=== PATIENT | female | born 1990 | race Hispanic/Latino ===

== ENCOUNTER 2016-11-17 18:19 | Emergency (ER) | payer OTHER ==
[~2016-11-17] VITALS: Ht 152.4 cm; Wt 62.6 kg
[2016-11-17] MEDS ORDERED: TYLE325T5 PO (18:33)
[2016-11-17] MEDS ORDERED: prenatal vitamin PO (18:33)
[2016-11-17 19:47] LABS: ABG BASE EXCESS -0.8 (-2.0-2.0); ABG HCO3 22.6 MEQ/L (22.0-26.0); ABG PARTIAL PRESSURE CO2 33.4 mmHg (35.0-45.0); ABG PARTIAL PRESSURE O2 103.7 mmHg (75.0-100.0); ABG STANDARD HCO3 23.8 MEQ/L (22.0-26.0); ABG TOTAL CO2 23.7 MEQ/L (22.0-29.0); ABG pH (ARTERIAL) 7.449 UNITS (7.350-7.450)
[2016-11-17 19:52] LABS: BASO % 0.1 % (0.0-1.0); EOS # 0.5 K/mm3 (0.0-0.50); EOS % 5.2 % (0.0-3.0); LARGE UNSTAINED CELL # 0.1 K/mm3 (0.0-0.4); LARGE UNSTAINED CELL % 1.3 % (0.0-4.0); LYMPH # 1.8 K/mm3 (1.5-6.5); LYMPH % 19.6 % (24.0-44.0); MEAN CORPUSCULAR HEMOGLOBIN 32.1 pg (27.0-33.0); MEAN CORPUSCULAR HGB CONC 34.6 g/dl (32.0-36.5); MEAN CORPUSCULAR VOLUME 92.9 fl (80.0-96.0); MONO # 0.5 K/mm3 (0.0-0.8); NEUTROPHILS # 6.4 K/mm3 (1.8-7.7); NEUTROPHILS % 68.7 % (36.0-66.0); PLATELET COUNT, AUTOMATED 238 k/mm3 (150-450); RED CELL DISTRIBUTION WIDTH 12.3 % (11.5-14.5); WHITE BLOOD COUNT 9.3 K/mm3 (4.0-10.0)
[2016-11-17 20:03] LABS: ALBUMIN 3.1 GM/DL (3.2-5.2); ALKALINE PHOSPHATASE 62 U/L (45-117); ALT/SGPT 16 U/L (12-78); ANION GAP 9 MEQ/L (8-16); AST/SGOT 12 U/L (15-37); BILIRUBIN,DIRECT 0.1 MG/DL (0.0-0.2); BILIRUBIN,TOTAL 0.4 MG/DL (0.2-1.0); BLOOD UREA NITROGEN 9 MG/DL (7-18); CALCIUM LEVEL 8.2 MG/DL (8.5-10.1); CARBON DIOXIDE LEVEL 26 MEQ/L (21-32); CHLORIDE LEVEL 103 MEQ/L (98-107); CREATININE FOR GFR 0.69 MG/DL (0.55-1.02); GLOMERULAR FILTRATION RATE > 60.0 (>60); GLUCOSE, FASTING 91 MG/DL (70-105); POTASSIUM SERUM 3.3 MEQ/L (3.5-5.1); SODIUM LEVEL 138 MEQ/L (136-145); TOTAL PROTEIN 6.2 GM/DL (6.4-8.2)
[2016-11-17 20:18] VITALS: BP 101/61
== END 2016-11-17 20:25 | disposition home or self-care (01) ==
LOC: EDBD 18:19 → M ED 19:32
DX: R06.02 Shortness of breath (principal); Z3A.10 10 weeks gestation of pregnancy

== ENCOUNTER 2017-04-13 16:11 | Outpatient (CLI) | payer OTHER ==
[~2017-04-13] VITALS: Ht 152.4 cm; Wt 70.7 kg
[~2017-04-13 16:11] MED LIST: TYLE325T5 PO; prenatal vitamin PO
[2017-04-13] MEDS ORDERED: FERR325T3 PO (16:30)
[2017-04-13 16:36] VITALS: BP 112/58
== END 2017-04-13 17:30 | disposition home or self-care (01) ==
LOC: M LDO 16:11
PROVIDERS: ATTEND Student in an Organized Health Care Education/Training Program
DX: O36.8130 Decreased fetal movements, third trimester, not applicable or unspecified (principal); Z3A.31 31 weeks gestation of pregnancy; N89.8 Other specified noninflammatory disorders of vagina; O26.893 Other specified pregnancy related conditions, third trimester

== ENCOUNTER 2017-06-03 10:25 | Inpatient (IN) | payer OTHER ==
[2017-06-03] VITALS (40 sets, daily range): BP systolic 93–127; BP diastolic 54–74
[~2017-06-03] VITALS: Ht 152.4 cm; Wt 73.2 kg
[~2017-06-03 10:25] MED LIST changes: +FERR325T3 PO
[2017-06-03] MEDS ORDERED: PENICILLIN G POTASSIUM IV 5 MU in D5W MINI-BAG PLUS 100 ML IV STA (10:53)
[2017-06-03] MEDS ORDERED: LACTATED RINGER'S 1000 ML IV ONE (11:00)
[2017-06-03] MEDS: LR 1,000 ML IV SCH ×2 (11:52→20:11)
[2017-06-03 12:30] LABS: MEAN CORPUSCULAR HEMOGLOBIN 29.5 pg (27.0-33.0); MEAN CORPUSCULAR HGB CONC 32.7 g/dl (32.0-36.5); PLATELET COUNT, AUTOMATED 218 10^3/uL (150-450); RED CELL DISTRIBUTION WIDTH 13.2 % (11.5-14.5); WHITE BLOOD COUNT 8.2 10^3/uL (4.0-10.0)
[2017-06-03] MEDS ORDERED: OXYTOCIN DRIP 30 UNITS in APPROPRIATE DILUENT 1 EA IV SCH (14:30)
[2017-06-03] MEDS: PENICILLIN G POTASSIUM IV 2.5 MU in APPROPRIATE DILUENT 1 EA IV SCH ×2 (15:13→19:32)
--- NOTE | 2017-06-03 15:45 | HPE ---
DATE OF ADMISSION: 06/03/2017 This lady comes in 5, para 4 angy every 4-5 minutes moderate intensity and on admission she says that she feels like pushing. She is in quite a bit of distress. On examination she is 2 cm, posterior, high, no loss of fluid or vaginal bleeding. Her estimated date of confinement (EDC) is 06/09/2017. She is at 40 and 3. Her past history is in September 2014 at 38 weeks vaginal delivery female 7 pounds, induction of labor, oligohydramnios with epidural, May 2013, 37 and three, vaginal delivery female 6 pounds 15 ounces, precipitous delivery, April 2011 at 37 weeks, vaginal delivery 7 pounds 3 ounces female. Her risk factors are anemia and group B Streptococcus positive (GBS). In 2008, she had a spontaneous miscarriage with dilatation and curettage (D and C). She was treated as if she had a delivery, although she delivered the earliest at 37 and the latest at 38 weeks of gestation. Labs are O+, HIV negative, hepatitis negative, RPR negative, rubella immune. Varicella immune. Pap normal. Urine negative. Gonorrhea and chlamydia negative. 1-hour glucose was 89. GBS was positive. Blood pressure 117/62, respirations 16, pulse 76, temperature 98.6. Urine is 1.010, pH 5, negative, negative, negative. Our plan of management today is to hydrate her to IV antibiotics because of her GBS status, reevaluate her contractions and her cervical change in 2 hours time. The rest of the examination is unremarkable. She is normocephalic, atraumatic. Neck full range of motion. Pupils equal and reactive to light. Distal pulses are symmetric. No evidence of DVT, PE or superficial phlebitis. Chest is clear bilaterally to bases. No evidence of wheezes or rhonchi. No CVA tenderness. Four quadrant bowel sounds are noted. Uterus is relaxed in between her contractions. No rashes, lesions or pruritus. She has marked a 2 off her right arm. No arthralgia, myalgia. No complaints of cough, wheezes, shortness of breath or dyspnea on exertion. No chest pain, not bleeding, not bruising. Neurologically complete. No history of incontinence, urgency or frequency. No nausea, vomiting, diarrhea or constipation. No diabetic issues. She has no [employer] issues. Past history surgical and medical unremarkable. Family history is noncontributory. She does not smoke, drink, or abuse drugs. She is to a soldier. No domestic violence and good support. In summary we have a 40 and 3 acting like she is fully dilated but is having contractions. Reevaluate her and treat her prophylactically for her GBS status if she continues on angy. FLORENTINO
[2017-06-03] MEDS ORDERED: FENTANYL 2MCG/ML ROPIVACAINE 0.2% IN 0.9% NACL 200ML IVBAG As Ordered ONE (19:24)
[2017-06-03] MEDS ORDERED: ONDANSETRON 4MG/2ML VIAL (J2405) IV PRN (20:30)
[2017-06-03] MEDS ORDERED: diphenhydrAMINE INJ 50MG/ML VIAL (J1200) IV PRN (20:30)
[2017-06-03] MEDS ORDERED: NALOXONE INJ 0.4 MG/1 ML VIAL (J2310) IV PRN (20:30)
[2017-06-03] MEDS ORDERED: EPIDURAL/PCA KEYS XX PRN (20:30)
[2017-06-03] MEDS ORDERED: ePHEDrine SULFATE 25 MG/5 ML(5MG/ML) SYRINGE IV PRN (20:30)
[2017-06-03] MEDS ORDERED: LACTATED RINGER'S 1000 ML IV PRN (20:30)
[2017-06-03] MEDS ORDERED: REFRIGERATOR IV KEYS XX PRN (20:30)
[2017-06-03] MEDS ORDERED: FENTANYL/ROPIVACAINE/NACL BAG 200 ML EPIDURAL SCH (20:30)
[2017-06-03] MEDS ORDERED: EPIDURAL COMMENT XX SCH (20:30)
[2017-06-03 22:51] LABS: CORD GAS ABE A -1.3; CORD GAS ABE V -0.4; CORD GAS HCO3 A 23.7 MEQ/L; CORD GAS HCO3 V 24.7 MEQ/L; CORD GAS O2 SAT A 57.1 %; CORD GAS O2 SAT V 59.6 %; CORD GAS PCO2 A 40.7 mmHg; CORD GAS PCO2 V 42.2 mmHg; CORD GAS PH A 7.383 UNITS; CORD GAS PH V 7.386 UNITS; CORD GAS PO2 A 23.9 mmHg; CORD GAS PO2 V 24.1 mmHg; CORD GAS SBC A 22.5 MEQ/L; CORD GAS SBC V 23.3 MEQ/L; CORD GAS TCO2 A 24.9 MEQ/L
[2017-06-03] MEDS ORDERED: ACETAMINOPHEN 500 MG TAB PO PRN (23:15)
[2017-06-03] MEDS ORDERED: MEASLES,MUMPS,RUBELLA VACCINE INJ (MMR-II) (90707) SC SCH (23:15)
[2017-06-03] MEDS ORDERED: METHYLERGONOVINE MALEATE 0.2 MG TAB PO PRN (23:15)
[2017-06-03] MEDS ORDERED: ANUSOL HC CREAM 30GM TOP PRN (23:15)
[2017-06-03] MEDS ORDERED: RHOGAM 300 MCG (1500 IU) INJ (J2790) IM SCH (23:15)
[2017-06-03] MEDS ORDERED: DOCUSATE SODIUM 100 MG CAP PO PRN (23:15)
[2017-06-03] MEDS ORDERED: MOM 30ML SUSPENSION UDC PO PRN (23:15)
[2017-06-03] MEDS ORDERED: DIBUCAINE 1% OINTMENT 30GM TOP PRN (23:15)
[2017-06-03] MEDS ORDERED: OXYTOCIN INJ 10 UNITS/ML VIAL (J2590) IV ONE (23:45)
[2017-06-04 00:20] VITALS: BP 105/59
[2017-06-04 06:00] VITALS: BP 110/53
[2017-06-04 07:04] LABS: MEAN CORPUSCULAR HEMOGLOBIN 29.6 pg (27.0-33.0); MEAN CORPUSCULAR HGB CONC 33.1 g/dl (32.0-36.5); MEAN CORPUSCULAR VOLUME 89.3 fl (80.0-96.0); PLATELET COUNT, AUTOMATED 164 10^3/uL (150-450); RED CELL DISTRIBUTION WIDTH 13.1 % (11.5-14.5); WHITE BLOOD COUNT 10.5 10^3/uL (4.0-10.0)
[2017-06-04] MEDS: IBUPROFEN 800 MG TAB PO PRN ×2 (09:26→21:07)
[2017-06-04] MEDS: PRENATAL VITAMINS CHEWABLE TABLET PO SCH (09:26)
--- NOTE | 2017-06-04 16:16 | DN ---
DATE: 06/03/2017 DELIVERY NOTE: This lady is a 3, para 3, was admitted in active labor. Group B Streptococcus (GBS) positive, adequately treated pre-delivery, had an epidural in place, spontaneous rupture of membranes draining clear liquor, delivered a live male weighing 3680 grams, 8 pounds 2 ounces, scores of 9 and 9 at one and five minutes respectively. Placenta delivered spontaneously thereafter. Three-vessel cord. Membranes and tissues intact. Arterial and venous pH was performed. On examination, the uterus contracted well down on Pitocin. Sphincter was tight. Lateral gallegos, anterior/dump motorman gallegos were clean. Perineum was intact. The patient and baby tolerating procedure well.
[2017-06-04 18:07] VITALS: BP 111/54
[2017-06-05 06:10] VITALS: BP 111/62
[2017-06-05] MEDS ORDERED: TYLE325T5 PO (07:52)
[2017-06-05] MEDS ORDERED: COLA100C5 PO (07:52)
[2017-06-05] MEDS ORDERED: NUPE1OIN2 TOP (07:52)
[2017-06-05] MEDS ORDERED: MOTR200T44 PO (07:52)
[2017-06-05] MEDS ORDERED: ANUS2.5C2 PR (07:52)
[2017-06-05] MEDS: PRENATAL VITAMINS CHEWABLE TABLET PO SCH (09:00)
[2017-06-05] MEDS ORDERED: ADACEL/BOOSTRIX VACCINE (DIPHTH/PERTUSS/ACELL/TETANUS)0.5ML SYR (90715) IM ONE ×2 (09:00)
--- NOTE | 2017-06-07 13:54 | IPN ---
DATE: 06/04/2017 This patient and have requested circumcision of their male . After discussing risks and benefits of circumcision, the medical and nonmedical indications, penile block, aftercare and complications, they expressed understanding of the issue. Answered all questions, signed and witnessed the consent form. We await the clearance by the solar sales associate.
== END 2017-06-05 11:15 | disposition home or self-care (01) | DRG 775 ==
LOC: M LDO 10:25 → M LDI 10:41 → M OBS 06-04
PROVIDERS: ADMIT Obstetrics & Gynecology; ATTEND Obstetrics & Gynecology
PROC: 10E0XZZ Delivery of Products of Conception, External Approach (ICD-10-PCS; principal; 2017-06-03)
DX: O48.0 Post-term pregnancy (principal); O99.824 Streptococcus B carrier state complicating childbirth; Z3A.40 40 weeks gestation of pregnancy; O99.02 Anemia complicating childbirth; D64.9 Anemia, unspecified; Z37.0 Single live birth

== ENCOUNTER 2020-02-17 15:00 | Emergency (ER) | payer OTHER, SELFPAY ==
[~2020-02-17 15:00] MED LIST changes: +ANUS2.5C2 PR; +COLA100C5 PO; +MOTR200T44 PO; +NUPE1OIN2 TOP
== END 2020-02-17 15:32 | disposition home or self-care (01) ==
LOC: M ED 15:00
DX: N63.20 Unspecified lump in the left breast, unspecified quadrant (principal)

== ENCOUNTER 2020-02-27 03:18 | Emergency (ER) | payer SELFPAY ==
--- NOTE | 2020-04-01 14:08 | ECGEPIP ---
SINUS RHYTHM WITH FIRST DEGREE AV BLOCK ABNORMAL ECG SEE SCANNED DOWNTIME REPORT MTDD
[2020-04-13 01:57] LABS: BASO % 0.6 % (0.0-1.0); EOS # 0.4 10^3/uL (0.0-0.5); EOS % 5.7 % (0.0-3.0); HEMATOCRIT 40.1 % (36.0-47.0); HEMOGLOBIN 13.3 g/dl (12.0-15.5); LYMPH # 2.4 10^3/uL (1.5-5.0); LYMPH % 33.4 % (24.0-44.0); MEAN CORPUSCULAR HEMOGLOBIN 31.4 pg (27.0-33.0); MEAN CORPUSCULAR HGB CONC 33.2 g/dl (32.0-36.5); MEAN CORPUSCULAR VOLUME 94.6 fl (80.0-96.0); MONO # 0.7 10^3/uL (0.0-0.8); MONO % 9.9 % (0.0-5.0); NEUTROPHILS # 3.6 10^3/uL (1.5-8.5); NEUTROPHILS % 50.1 % (36.0-66.0); PLATELET COUNT, AUTOMATED 230 10^3/uL (150-450); RED BLOOD COUNT 4.24 10^6/uL (4.00-5.40); WHITE BLOOD COUNT 7.2 10^3/uL (4.0-10.0)
[2020-04-13 02:13] LABS: INR 1.07; PARTIAL THROMBOPLASTIN TIME 34.7 SECONDS (24.2-38.5); PROTHROMBIN TIME 14.1 SECONDS (12.5-14.3)
[2020-05-22 12:26] LABS: HCG, SERUM QUALITATIVE NEGATIVE (NEGATIVE)
[2020-05-22 12:37] LABS: BLOOD UREA NITROGEN 14 MG/DL (7-18); CALCIUM LEVEL 8.5 MG/DL (8.5-10.1); CARBON DIOXIDE LEVEL 25 MEQ/L (21-32); CHLORIDE LEVEL 109 MEQ/L (98-107); CK-MB VALUE MASS < 1.0 NG/ML (<3.6); CPK CREATINE PHOSPHOKINASE 208 U/L (26-192); CREATININE FOR GFR 0.94 MG/DL (0.55-1.30); GLOMERULAR FILTRATION RATE > 60.0 (>60); GLUCOSE, FASTING 92 MG/DL (70-100); MB/CK RELATIVE INDEX 0.48 (< OR =4); NT-PRO BNP 13 PG/ML (<125); SODIUM LEVEL 140 MEQ/L (136-145); TROPONIN I < 0.02 NG/ML (< 0.10)
== END 2020-02-27 06:40 | disposition home or self-care (01) ==
LOC: M ED 03:18
DX: R07.9 Chest pain, unspecified (principal); R94.31 Abnormal electrocardiogram [ECG] [EKG]; I44.0 Atrioventricular block, first degree